=== PATIENT | male | born 2000 | race African-American/Black ===

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

== ENCOUNTER → 2022-10-11 | Outpatient (CLI) | payer BC, OTHER, SELFPAY | LOC: M SLEEP HO 13:37 | PROVIDERS: ATTEND Family Medicine | DX: R06.83 Snoring (principal) ==